=== PATIENT | female | born 1935 | race Hispanic/Latino ===

== ENCOUNTER → 2022-08-18 | Outpatient (CLI) | payer MEDICARE | END | disposition home or self-care (01) | LOC: RAD 14:47 | PROVIDERS: ATTEND Orthopaedic Surgery | DX: M17.11 Unilateral primary osteoarthritis, right knee (principal) | CPT/HCPCS: 73700 ==

== ENCOUNTER → 2022-09-02 | Outpatient (CLI) | payer MEDICARE ==
[2022-09-02 14:11] LABS: BASOPHIL % 0.4 % (0.0-0.2); EOSINOPHIL # 0.1 10^3/uL (0.0-0.2); EOSINOPHIL % 2.5 % (0.0-5.0); LYMPHOCYTES # 1.09 10^3/uL1 (1.0-4.8); LYMPHOCYTES % 19.4 % (24.0-44.0); MONOCYTES # 0.3 10^3/uL (0.3-0.8); MONOCYTES % 5.7 % (5.0-12.0); NEUTROPHILS % 71.8 % (41.0-85.0); PLATELET COUNT 184 10^3/uL (150-400); RED CELL DISTRIBUTION WIDTH 13.9 % (11.5-14.5)
[2022-09-02 14:47] LABS: CARBON DIOXIDE 27.8 mmol/L (20.0-32)
== END | disposition home or self-care (01) ==
LOC: NPLAB 13:03
PROVIDERS: ATTEND Specialist
DX: I10 Essential (primary) hypertension (principal); E11.9 Type 2 diabetes mellitus without complications; E78.00 Pure hypercholesterolemia, unspecified; E55.9 Vitamin D deficiency, unspecified
CPT/HCPCS: 36415; 80053; 80061; 82306; 83036; 84443; 85025; 86140

== ENCOUNTER 2022-09-20 08:00 | Inpatient (IN) | payer MEDICARE ==
[2022-09-16 14:38] VITALS: BP 126/62
--- NOTE | 2022-09-16 15:37 | PCM.EKG ---
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
[2022-09-16 15:47] LABS: BASOPHIL % 0.6 % (0.0-0.2); EOSINOPHIL # 0.1 10^3/uL (0.0-0.2); EOSINOPHIL % 2.8 % (0.0-5.0); LYMPHOCYTES # 1.07 10^3/uL1 (1.0-4.8); LYMPHOCYTES % 21.5 % (24.0-44.0); MEAN CORP HGB 28.9 pg (26-34); MONOCYTES # 0.3 10^3/uL (0.3-0.8); MONOCYTES % 6.2 % (5.0-12.0); NEUTROPHIL # 3.4 10^3/uL (1.8-7.7); NEUTROPHILS % 68.7 % (41.0-85.0); PLATELET COUNT 229 10^3/uL (150-400); RED CELL DISTRIBUTION WIDTH 13.3 % (11.5-14.5)
[2022-09-16 15:48] LABS: BILIRUBIN,URINE NEGATIVE (NEGATIVE); UROBILINOGEN,URINE 0.2 E.U./dL (0.2)
[2022-09-16 16:01] LABS: CARBON DIOXIDE 30.6 mmol/L (20.0-32)
[2022-09-20] VITALS (17 sets, daily range): BP systolic 100–154; BP diastolic 45–87
[~2022-09-20] VITALS: Ht 149.9 cm; Wt 86.6 kg
[2022-09-20] MEDS: LACTATED RINGERS 1,000 ML IV SCH ×2 (06:55→13:29)
[~2022-09-20 08:00] MED LIST: ANCEF 2 GM in NS 100ML 100 ML IV ONE; ANCEF ONE; ASPI81CA PO; BACTROBAN OINTMENT TP ONE; CELEBREX ONE; CELEBREX PO ONE; DECADRON IV ONE; DECADRON ONE; DIPRIVAN 100 ML IV ONE; EXPAREL 266 MG/20 ML VIAL IJ ONE; GABA100C7 PO; LISI10TA20 PO; MARCAINE 0.5% ONE; METF500T17 PO; NEURONTIN ONE; NEURONTIN PO ONE; NS 100ML 100 ML IV ONE; NS 250ML 250 ML ONE; NS 3000ML IRR IR ONE; OFIRMEV 100 ML IV ONE; OFIRMEV IV ONE; TRAM50TA PO; TRANEXAMIC 1,000 MG/100ML-NACL 200 ML IV ONE; ULTRAM ONE; ULTRAM PO ONE; VERSED ONE; WATER ONE; ZOFRAN ONE
--- NOTE | 2022-09-20 09:01 | PCM.HP ---
HISTORY & PHYSICAL HISTORY & PHYSICAL DATE OF ADMISSION: 09/20/22 CHIEF COMPLAINT: right knee pain HISTORY OF PRESENT ILLNESS: Patient has had right knee pain for several years. Her symptoms are gradually getting worse. She takes tramadol and tylenol for the pain. She has pain with household ambulation as well as night pain and limping. She is not able to do her activities of daily living. She states the right knee has given way several times causing her to fall. She's done a home exercise program and tried braces in the past. ALLERGIES: NKDA CURRENT MEDICATIONS: lisinopril, metformin, gabapentin, tramadol, vazalore PAST MEDICAL HISTORY: HTN, DM, dypsnea SOCIAL HISTORY: Lives at home by herself in [place]. She will be staying with her sisters in [place] while recovering from total knee replacement. She reports that she smoked for about a year 50 years ago. Denies alcohol use. Denies illicit drug use. FAMILY HISTORY: Diabetes, cardiac disease REVIEW OF SYSTEMS: right knee pain, all other systems unremarkable VITAL SIGNS: WNL PHYSICAL EXAMINATION: SKIN:WNL EENT:WNL AIRWAY:WNL CHEST AND LUNGS:CTA HEART:RRR ABDOMEN:soft and nontender, bowel sounds active x4 quadrants EXTREMITIES: Obvious varus deformity about the right knee. Right knee has full extension with 120 degrees of flexion. Moderate degree of crepitation with flexion and extension. Good medial lateral stability. LABORATORY DATA: IMAGING: Xrays show the right knee is tricompartmentally [id number] with some medial subluxation of her distal femur on the proximal tibia. SUMMARY: osteoarthritis of the right knee ASSESSMENT/PLAN: right total knee replacement Laboratory Tests Test 09/16/22 14:38 09/16/22 15:30 09/20/22 06:28 Urine Collection Type UNKNOWN Urine Color YELLOW Urine Appearance CLOUDY Urine Bilirubin NEGATIVE (NEGATIVE) Urine Ketones NEGATIVE (NEGATIVE) Urine Specific [place] >=1.030 (1.005-1.030) Urine pH 5.5 (4.5-8.0) Urine Protein NEGATIVE (NEGATIVE) Urine Urobilinogen 0.2 E.U./dL (0.2) Urine Nitrate POSITIVE (NEGATIVE) Urine Leukocyte Esterase NEGATIVE (NEGATIVE) Urine Glucose (Auto)(UA) NEGATIVE (NEGATIVE) Urine Blood NEGATIVE (NEGATIVE) Urine RBC NONE SEEN RBC/HPF (NONE Urine WBC 5-10 WBC/HPF (0-2) Urine Squamous Epithelial Cells MANY (<=FEW) Urine Bacteria MANY (NONE SEEN) White Blood Count 5.0 10^3/uL (4.5-11.0) Red Blood Count 4.50 10^6/uL (4.00-5.20) Hemoglobin 13.0 g/dL (12.0-15.0) Hematocrit 40.5 % (36.0-46.0) Mean Corpuscular Volume 90.0 fL (78-100) Mean Corpuscular Hemoglobin 28.9 pg (26-34) Mean Corpuscular Hemoglobin Concent 32.1 g/dL (33-36.5) Red Cell Distribution Width 13.3 % (11.5-14.5) Platelet Count 229 10^3/uL (150-400) Mean Platelet Volume 10.5 fL (7.8-11.0) Neutrophils (%) (Auto) 68.7 % (41.0-85.0) Lymphocytes (%) (Auto) 21.5 % (24.0-44.0) Monocytes (%) (Auto) 6.2 % (5.0-12.0) Neutrophils # (Auto) 3.4 10^3/uL (1.8-7.7) Lymphocytes # (Auto) 1.07 10^3/uL1 (1.0-4.8) Monocytes # (Auto) 0.3 10^3/uL (0.3-0.8) Absolute Immature Granulocyte (auto 0.01 10^3 u/L (0-2) Absolute Eosinophils (auto) 0.1 10^3/uL (0.0-0.2) Immature Granulocytes % 0.20 % (0.00-0.50) Eosinophils % 2.8 % (0.0-5.0) Basophils % 0.6 % (0.0-0.2) Basophils # 0.0 10^3/uL (0.0-0.1) Sodium Level 142 mmol/L (132-145) Potassium Level 4.3 mmol/L (3.6-5.2) Chloride Level 106.0 mmol/L (96-109) Carbon Dioxide Level 30.6 mmol/L (20.0-32) Anion Gap 9.7 Blood Urea Nitrogen 15 mg/dL (7-18) Creatinine 0.90 mg/dL (0.59-1.40) Estimated GFR () 71.7 (>/=60) Est GFR (CKD-EPI)(Non-Afr And[place]) 59.2 (>/=60) BUN/Creatinine Ratio 16.0 Glucose Level 112 mg/dL (70-110) Calcium Level 8.8 mg/dL (8.4-10.5) Total Bilirubin 0.4 mg/dL (0.2-1.0) Aspartate Amino Transf (AST/SGOT) 10 U/L (0-35) Alanine Aminotransferase (ALT/SGPT) 15 U/L (12-78) Alkaline Phosphatase 75 U/L (50-136) Total Protein 6.8 g/dL (6.4-8.2) Albumin 3.5 g/dL (3.4-5.0) Globulin 3.3 Albumin/Globulin Ratio 1.060 Bedside Glucose 101 (70 - 110) Microbiology Date/Time Source Procedure Growth Status 09/16/22 14:38 Nose MRSA Screen - Final Complete 09/16/22 14:38 Urine Unknown Urine Culture - Final Eschericha Coli Complete EVELIA JOHNSON SECURITY TRAINER Sep 20, 2022 09:01
[2022-09-20] MEDS ORDERED: CEPACOL SORE THROAT LOZENGE MM PRN (09:30)
[2022-09-20] MEDS ORDERED: LACTATED RINGERS 1,000 ML IV SCH (09:30)
[2022-09-20] MEDS ORDERED: ULTRAM PO PRN ×2 (09:30)
[2022-09-20] MEDS ORDERED: ZOFRAN IV PRN (09:30)
--- NOTE | 2022-09-20 11:03 | OPH ---
DATE OF SURGERY: 09/20/2022 DICTATOR NAME: Mika Tejada MD PREOPERATIVE DIAGNOSIS: Osteoarthritis of the right knee. POSTOPERATIVE DIAGNOSIS: Osteoarthritis of the right knee. OPERATIVE PROCEDURE: Right total knee arthroplasty using Medacta Sphere knee, a size 3 femur, a size 2 tibia, a 14 mm insert. All components were cemented. SURGEON: Mika Tejada MD. ANESTHESIA: Spinal. TOURNIQUET TIME: 62 minutes at 300 mmHg. DRAINS: None. BLOOD LOSS: 500 mL. DESCRIPTION OF INDICATIONS: The patient is an 87-year-old female with pain about the right knee for several years. Symptoms are worse in the last 6 months. She takes tramadol and Tylenol for the pain. She had several intraarticular cortisone injections with only temporary relief. She has pain with just household ambulation as well as night pain and limping. She is unable to perform her ADLs. The patient has failed a home exercise program. She has also tried a brace. Exam shows that the patient has an obvious varus deformity about the right knee. She has full extension and 120 degrees of flexion, good medial and lateral stability, moderate crepitation with flexion and extension. The x-rays showed that she has tricompartmentally [id number] of the right knee with a severe varus deformity. This patient's general health is good. She is still active, lives at home and admitted today for right total knee arthroplasty. DESCRIPTION OF PROCEDURE: The patient was given a spinal anesthetic by the anesthesia department and placed in the operating table in a supine position. A well-padded tourniquet was placed around the right thigh. The right lower extremity was sterilely prepped and draped. The leg was exsanguinated with an Esmarch and then the tourniquet was inflated to 300. The knee was flexed to 90 degrees and an anterior incision was made. The incision was taken through the skin and the subcutaneous tissues. Full-thickness flaps were developed medially and laterally. A medial parapatellar arthrotomy was performed. The patella was deviated laterally. The capsule and the MCL were released around the posteromedial corner of the proximal tibia. Medial and lateral meniscectomies were performed and the anterior and posterior cruciate ligaments were excised. The [employer] femoral cutting guide was placed about the distal femur and held into position with multiple pins. A distal femoral cut was then made with a power saw. The patient then had the #2 femoral guide, size 3, placed about the distal femur and held into position with multiple screws and pins. The anterior and posterior femoral cuts as well as the chamfer cuts were made. The patient had the bent knee retractor applied and the tibia was subluxed anteriorly. Medial and lateral meniscectomies were completed. The patient had the tibial cutting guide applied to the proximal tibia. The proximal tibia cut was made. The peripheral osteophytes were trimmed. The tibia was sized and a size 2 tibial trial had good coverage. The central drill hole was made and the cruciate punch was used to stabilize the tibial component. A trial reduction was done with a size 2 tibia, a size 3 femur, initially a 10 and we worked up to a size 14 insert. With the 14 insert, the patient had full extension with 120 degrees of flexion, excellent medial and lateral stability as well as excellent anterior and posterior stability at 90 degrees. The patient had the final medial and lateral femoral drill holes made. The patella had excellent tracking. The patella was everted and the peripheral osteophytes were trimmed, and the peripheral edges of the patella were cauterized. The patient then had the femoral sulcus cut made. All the trial components were removed from the knee. The bony ends were copiously irrigated and dried and then a size 2 tibial component was cemented into position. The excess cement was removed with curettes. A size 14 polyethylene component was applied and the size 3 femoral component was cemented. After all the excess cement was removed and the cement had hardened, the joint was irrigated with Betadine-containing solution for 3 minutes. At the end of the 3 minutes, the Betadine was irrigated from the wound. The tourniquet was released. The bleeding was controlled with the Aquamantys device. The capsule was then closed with a #2 PDS in an interrupted [id number] manner. The subcutaneous was closed with 2-0 barbed Monocryl in a running manner. The skin was closed with grant. A suction Prevena-type dressing was applied, reinforced with 4 x 4s, cast padding and Jose Alberto wrap. The patient was sent to recovery in a stable condition. Mika Tejada MD DR: TYRON/ASHU BACON: [id number] RECEIPT: [id number]
[2022-09-20] MEDS: TYLENOL PO SCH ×3 (12:48→23:25)
--- NOTE | 2022-09-20 13:07 | DIREP ---
PROCEDURE:XRAY KNEE 2 VWS-RT COMPARISON:None. INDICATIONS:right kinee pain FINDINGS: Arthroplasty of right knee in good alignment and without visualized complication. Expected subcutaneous emphysema and soft tissue swelling. No unexpected radiopaque foreign body. CONCLUSION: Arthroplasty of right knee in good alignment and without visualized complication. Dictated by: Dakota Savage DO on 09/20/2022 at 01:05 PM
[2022-09-20] MEDS: ANCEF 2 GM/D5W 50ML IV SCH ×2 (13:29→22:00)
[2022-09-20] MEDS: NEURONTIN PO SCH ×2 (15:48→21:00)
--- NOTE | 2022-09-20 16:04 | PRM.CONS ---
CONSULTATION CONSULTATION Referring physician: Dr. Tejada Reason for consultation: Medical management Chief complaint: right knee pain History present illness: Patient is 87 yo lady, PMH Diabetes,type II, HTN, osteoarthritis who has had right knee pain for several years, getting worse over past few months. She takes tramadol and tylenol for the pain. She has pain with ambulation and limping. She is not able to do her activities of daily living. She states the right knee has given way several times causing her to fall. She's done a home exercise program and tried braces in the past. She lives in [facility], currently staying with her sister in [place], had total right knee replacement by Dr Tejada earlier today. Currently pain controlled, patient still groggy from anesthesia during examination. Family present. Past medical history: Diabetes, type II, osteoporosis, hypertension Medications: Patient unable to recall any but metformin 500 mg daily Allergies: Patient denies any food or drug allergies PCP: Dr. Sanchez in [facility] Pharmacy: [facility] in [facility] or [facility] in [place] SURGICAL HISTORY: Cholecystectomy, tonsillectomy, hysterectomy, left breast lumpectomy Social history: Patient denies tobacco, alcohol, illicit drug use. Patient is , lives with her daughter, uses a cane Family history significant for diabetes and heart disease Review of systems: 10 point review systems negative per HPI Vital signs: Vital Signs Date Time Temp Pulse Resp B/P (MAP) Pulse Ox O2 Delivery O2 Flow Rate FiO2 09/20/22 12:11 98.6 56 16 125/70 (88) 99 Room Air* 0 21 09/20/22 10:58 97.8 52 16 109/55 (73) 93 Room Air 09/20/22 10:50 0 09/20/22 10:50 48 16 112/60 (77) 96 Room Air 09/20/22 10:45 50 16 109/64 (79) 100 Nasal Canula 09/20/22 10:40 49 16 113/65 (81) 98 Nasal Canula 09/20/22 10:35 52 16 112/60 (77) 98 Nasal Canula 09/20/22 10:30 52 16 124/56 (78) 98 Nasal Canula 09/20/22 10:25 56 16 107/45 (65) 99 Nasal [place]ula 09/20/22 10:21 2.00 2/27/23 10:21 97.7 55 16 103/56 (72) 99 Nasal [place]ula 09/20/22 07:35 62 16 132/74 (93) 100 Room Air 09/20/22 07:30 58 16 124/76 (92) 100 Nasal [place] 2.00 09/20/22 07:25 60 16 146/73 (97) 100 Nasal [place]ula 2.00 09/20/22 07:20 64 16 154/74 (100) 98 Nasal [place] 2.00 09/20/22 06:00 97.8 64 16 126/67 (86) 98 Room Air 09/20/22 06:00 Room Air Physical exam: General: Patient awakens easily, still groggy from surgery no acute distress HEENT: Head atraumatic, PERRL, EOMI, oropharynx clear, neck supple Heart: Normal S1 and S2, no murmur Lungs: Good air entry bilaterally, no rhonchi or wheeze Abdomen: Soft, nontender, positive bowel sounds but diminished Extremities: Right leg bandaged, regional block in place, good distal pulses bilaterally Skin: Intact, no rashes or breakdown Neuro: Patient groggy but alert and oriented x4, grossly intact Laboratory: Laboratory Tests 09/20/22 06:28: Bedside Glucose 101 Summary: 87-year-old lady with past medical history of hypertension, diabetes type 2, osteoarthritis presented with complaint of progressing right knee pain post right total knee replacement today. Assessment/plan: Hypertensionblood pressure: Controlled, continue home medications once known Diabetes, type IIcontinue Accu-Cheks, will resume home medications once known. Sliding-scale insulin as needed Right knee painpost total knee replacement today, Dr. Tejada, pain currently controlled, further plan per Dr. Tejada/PT Scheduled Aspirin (Vazalore), 81 MG PO DAILY24, (Reported) Gabapentin (Gabapentin), 1 CAP PO TID, (Reported) Lisinopril (Lisinopril), 1 TAB PO DAILY, (Reported) Metformin Hcl (Metformin Hcl), 1 TAB PO BID, (Reported) Tramadol Hcl (Tramadol Hcl), 0.5 TAB PO TID, (Reported) VITALS REVIEW VITALS Vital Sign - Last 24 Hours 09/20/22 09/20/22 09/20/22 09/20/22 06:00 06:00 07:20 07:25 Temp 97.8 Pulse 64 64 60 Resp 16 16 16 B/P (MAP) 126/67 (86) 154/74 (100) 146/73 (97) Pulse Ox 98 98 100 O2 Delivery Room Air Room Air Nasal Canula Nasal Canula O2 Flow Rate 2.00 2.00 09/20/22 09/20/22 09/20/22 09/20/22 07:30 07:35 10:21 10:21 Temp 97.7 Pulse 58 62 55 Resp 16 16 16 B/P (MAP) 124/76 (92) 132/74 (93) 103/56 (72) Pulse Ox 100 100 99 O2 Delivery Nasal Canula Room Air Nasal [place]ula O2 Flow Rate 2.00 2.00 09/20/22 09/20/22 09/20/22 09/20/22 10:25 10:30 10:35 10:40 Pulse 56 52 52 49 Resp 16 16 16 16 B/P (MAP) 107/45 (65) 124/56 (78) 112/60 (77) 113/65 (81) Pulse Ox 99 98 98 98 O2 Delivery Nasal Canula Nasal Canula Nasal Canula Nasal Canula 09/20/22 09/20/22 09/20/22 09/20/22 10:45 10:50 10:50 10:58 Temp 97.8 Pulse 50 48 52 Resp 16 16 16 B/P (MAP) 109/64 (79) 112/60 (77) 109/55 (73) Pulse Ox 100 96 93 O2 Delivery Nasal [place] Room Air Room Air O2 Flow Rate 0 09/20/22 12:11 Temp 98.6 Pulse 56 Resp 16 B/P (MAP) 125/70 (88) Pulse Ox 99 O2 Delivery Room Air* O2 Flow Rate 0 FiO2 21 LABS LAB RESULTS Laboratory Tests Test 09/20/22 06:28 Bedside Glucose 101 (70 - 110) YASH REYES MD Sep 20, 2022 16:04
--- NOTE | 2022-09-20 17:12 | PRM.PN ---
Subjective Subjective Date: Sep 20, 2022 Time: 17:11 Subjective Awake and alert Pain ok Up in room with PT HGB pending NVM+ Stable Patient History: Diabetes mellitus 19 CHILD 19 CHILD No known health problems G8 BROTHER G8 BROTHER G8 BROTHER G8 SISTER G8 SISTER G8 SISTER G8 SISTER G8 SISTER 19 CHILD VTE VTE Risk Total Score: 3 VTE Risk Score VTE Risk: Score 0-1 = Low Risk (Aggressive mobilization; early ambulation; no VTE prophylaxis required) Score 2: Moderate Risk (Intermittent/Pneumatic Compression Device OR Lovenox/Heparin/Coumadin) Score 3-4: High Risk (Intermittent/Pneumatic Compression Device AND Lovenox/Heparin/Coumadin) Score > or =5: Highest Risk (Intermittent/Pneumatic Compression Device AND Lovenox/Heparin/Coumadin) Review of Systems Allergies: Coded Allergies: No Known Allergies (Unverified , 09/16/22) Scheduled Aspirin (Vazalore), 81 MG PO DAILY24, (Reported) Gabapentin (Gabapentin), 1 CAP PO TID, (Reported) Lisinopril (Lisinopril), 1 TAB PO DAILY, (Reported) Metformin Hcl (Metformin Hcl), 1 TAB PO BID, (Reported) Tramadol Hcl (Tramadol Hcl), 0.5 TAB PO TID, (Reported) Objective Vitals and I/O Vital Sign - Last 24 Hours 09/20/22 09/20/22 09/20/22 09/20/22 06:00 06:00 07:20 07:25 Temp 97.8 Pulse 64 64 60 Resp 16 16 16 B/P (MAP) 126/67 (86) 154/74 (100) 146/73 (97) Pulse Ox 98 98 100 O2 Delivery Room Air Room Air Nasal [place]ula Nasal Canula O2 Flow Rate 2.00 2.00 09/20/22 09/20/22 09/20/22 09/20/22 07:30 07:35 10:21 10:21 Temp 97.7 Pulse 58 62 55 Resp 16 16 16 B/P (MAP) 124/76 (92) 132/74 (93) 103/56 (72) Pulse Ox 100 100 99 O2 Delivery Nasal Canula Room Air Nasal [place]ula O2 Flow Rate 2.00 2.00 09/20/22 09/20/22 09/20/22 09/20/22 10:25 10:30 10:35 10:40 Pulse 56 52 52 49 Resp 16 16 16 16 B/P (MAP) 107/45 (65) 124/56 (78) 112/60 (77) 113/65 (81) Pulse Ox 99 98 98 98 O2 Delivery Nasal Canula Nasal Canula Nasal Canula Nasal Canula 09/20/22 09/20/22 09/20/22 09/20/22 10:45 10:50 10:50 10:58 Temp 97.8 Pulse 50 48 52 Resp 16 16 16 B/P (MAP) 109/64 (79) 112/60 (77) 109/55 (73) Pulse Ox 100 96 93 O2 Delivery Nasal [place] Room Air Room Air O2 Flow Rate 0 09/20/22 09/20/22 12:11 16:02 Temp 98.6 98.8 Pulse 56 58 Resp 16 19 B/P (MAP) 125/70 (88) 150/87 (108) Pulse Ox 99 97 O2 Delivery Room Air* Room Air* O2 Flow Rate 0 0 FiO2 21 21 All Results(Lab/Rad) Laboratory Tests Test 09/20/22 06:28 Bedside Glucose 101 Current Medications Medications (Trade) Dose Ordered Sig/Norris Route PRN Reason Start Time Stop Time Status Last Admin Dose Admin Cefazolin Sodium 2 gm/Sodium Chloride 100 ml @ 100 mls/hr OT ONCE IV 09/20/22 06:00 09/20/22 13:09 DC 09/20/22 08:06 Mupirocin (Bactroban Ointment) 1 gm OT ONCE TP 09/20/22 06:00 09/20/22 13:09 DC 09/20/22 06:38 Cefazolin Sodium (Ancef) 2 gm STK-MED ONCE .ROUTE 09/20/22 05:35 09/20/22 05:35 DC Sodium Chloride 100 ml @ ud STK-MED ONCE IV 09/20/22 05:35 09/20/22 05:36 DC Gabapentin (Neurontin) 300 mg STK-MED ONCE .ROUTE 09/20/22 05:54 09/20/22 05:54 DC Celecoxib (Celebrex) 100 mg STK-MED ONCE .ROUTE 09/20/22 05:54 09/20/22 05:54 DC Tramadol HCl (Ultram) 50 mg STK-MED ONCE .ROUTE 09/20/22 05:54 09/20/22 05:54 DC Acetaminophen 100 ml @ ud STK-MED ONCE IV 09/20/22 05:54 09/20/22 05:54 DC Celecoxib (Celebrex) 400 mg OT ONCE PO 09/20/22 06:00 09/20/22 13:11 DC 09/20/22 06:36 Gabapentin (Neurontin) 600 mg OT ONCE PO 09/20/22 06:00 09/20/22 13:13 DC 09/20/22 06:38 Tramadol HCl (Ultram) 100 mg OT ONCE PO 09/20/22 06:00 09/20/22 13:15 DC 09/20/22 06:37 Acetaminophen (Ofirmev) 500 mg OT ONCE IV 09/20/22 06:00 09/20/22 13:15 DC 09/20/22 06:58 Sodium Chloride (NS 3000ml Irr) 3,000 ml STK-MED ONCE IR 09/20/22 07:12 09/20/22 07:13 DC Sterile Water (Water) 1,000 ml STK-MED ONCE .ROUTE 09/20/22 07:12 09/20/22 07:13 DC Sodium Chloride 250 ml @ ud STK-MED ONCE .ROUTE 09/20/22 07:13 09/20/22 07:14 DC Bupivacaine HCl (Marcaine 0.5%) 1 ml STK-MED ONCE .ROUTE 09/20/22 07:15 09/20/22 07:15 DC Sterile Water (Water) 1,000 ml STK-MED ONCE .ROUTE 09/20/22 07:17 09/20/22 07:17 DC Sterile Water (Water) 1,000 ml STK-MED ONCE .ROUTE 09/20/22 07:19 09/20/22 07:19 DC Ondansetron HCl (Zofran) 4 mg STK-MED ONCE .ROUTE 09/20/22 07:42 09/20/22 07:42 DC Propofol 100 ml @ ud STK-MED ONCE IV 09/20/22 07:42 09/20/22 07:42 DC Gabapentin (Neurontin) 100 mg TID PO 09/20/22 15:00 10/20/22 14:59 09/20/22 15:48 Lisinopril (Zestril) 10 mg DAILY PO 09/21/22 09:00 10/21/22 08:59 Metformin HCl (Glucophage) 500 mg BID PO 09/20/22 21:00 10/20/22 20:59 Tramadol HCl (Ultram) 50 mg Q6H PRN PO PAIN 1 - 3 09/20/22 09:30 10/20/22 09:29 Tramadol HCl (Ultram) 100 mg Q6H PRN PO PAIN 4 - 6 09/20/22 09:30 10/20/22 09:29 Rivaroxaban (Xarelto) 10 mg DAILY PO 09/21/22 09:00 10/21/22 08:59 Docusate Sodium (Colace) 100 mg DAILY PO 09/21/22 09:00 10/21/22 08:59 Throat Lozenges (Cepacol Sore Throat Lozenge) 1 each PRN PRN MM SORE THROAT 09/20/22 09:30 10/20/22 09:29 Cefazolin Sodium/ Dextrose (Ancef 2 Gm/D5W 50ml) 2 gm Q8 IV 09/20/22 14:00 09/21/22 06:01 09/20/22 13:29 Famotidine (Pepcid) 20 mg DAILY PO 09/21/22 09:00 10/21/22 08:59 Acetaminophen (Tylenol) 1,000 mg Q6HR PO 09/20/22 12:00 10/20/22 11:59 09/20/22 12:48 Mupirocin (Bactroban Ointment) 1 gm BID TP 09/20/22 21:00 10/20/22 20:59 Ondansetron HCl (Zofran) 4 mg Q4H PRN IV NAUSEA / VOMITING 09/20/22 09:30 10/20/22 09:29 Ketorolac Tromethamine (Toradol) 15 mg Q6H PRN IV PAIN 7 - 10 09/20/22 09:30 09/25/22 09:29 Course Vitals & review Data Vital Sign - Last 24 Hours 09/20/22 09/20/22 09/20/22 09/20/22 06:00 06:00 07:20 07:25 Temp 97.8 Pulse 64 64 60 Resp 16 16 16 B/P (MAP) 126/67 (86) 154/74 (100) 146/73 (97) Pulse Ox 98 98 100 O2 Delivery Room Air Room Air Nasal Canula Nasal Canula O2 Flow Rate 2.00 2.00 09/20/22 09/20/22 09/20/22 09/20/22 07:30 07:35 10:21 10:21 Temp 97.7 Pulse 58 62 55 Resp 16 16 16 B/P (MAP) 124/76 (92) 132/74 (93) 103/56 (72) Pulse Ox 100 100 99 O2 Delivery Nasal Canula Room Air Nasal Canula O2 Flow Rate 2.00 2.00 09/20/22 09/20/22 09/20/22 09/20/22 10:25 10:30 10:35 10:40 Pulse 56 52 52 49 Resp 16 16 16 16 B/P (MAP) 107/45 (65) 124/56 (78) 112/60 (77) 113/65 (81) Pulse Ox 99 98 98 98 O2 Delivery Nasal Canula Nasal Canula Nasal Canula Nasal Canula 09/20/22 09/20/22 09/20/22 09/20/22 10:45 10:50 10:50 10:58 Temp 97.8 Pulse 50 48 52 Resp 16 16 16 B/P (MAP) 109/64 (79) 112/60 (77) 109/55 (73) Pulse Ox 100 96 93 O2 Delivery Nasal [place]ula Room Air Room Air O2 Flow Rate 0 09/20/22 09/20/22 12:11 16:02 Temp 98.6 98.8 Pulse 56 58 Resp 16 19 B/P (MAP) 125/70 (88) 150/87 (108) Pulse Ox 99 97 O2 Delivery Room Air* Room Air* O2 Flow Rate 0 0 FiO2 21 21 Laboratory Tests Test 09/20/22 06:28 Bedside Glucose 101 Current Medications Medications (Trade) Dose Ordered Sig/Norris PRN Reason Start Time Stop Time Status Last Admin Acetaminophen (Tylenol) 1,000 mg Q6HR 09/20/22 12:00 10/20/22 11:59 09/20/22 12:48 Cefazolin Sodium/ Dextrose (Ancef 2 Gm/D5W 50ml) 2 gm Q8 09/20/22 14:00 09/21/22 06:01 09/20/22 13:29 Docusate Sodium (Colace) 100 mg DAILY 09/21/22 09:00 10/21/22 08:59 Famotidine (Pepcid) 20 mg DAILY 09/21/22 09:00 10/21/22 08:59 Gabapentin (Neurontin) 100 mg TID 09/20/22 15:00 10/20/22 14:59 09/20/22 15:48 Ketorolac Tromethamine (Toradol) 15 mg Q6H PRN PAIN 7 - 10 09/20/22 09:30 09/25/22 09:29 Lisinopril (Zestril) 10 mg DAILY 09/21/22 09:00 10/21/22 08:59 Metformin HCl (Glucophage) 500 mg BID 09/20/22 21:00 10/20/22 20:59 Mupirocin (Bactroban Ointment) 1 gm BID 09/20/22 21:00 10/20/22 20:59 Ondansetron HCl (Zofran) 4 mg Q4H PRN NAUSEA / VOMITING 09/20/22 09:30 10/20/22 09:29 Rivaroxaban (Xarelto) 10 mg DAILY 09/21/22 09:00 10/21/22 08:59 Throat Lozenges (Cepacol Sore Throat Lozenge) 1 each PRN PRN SORE THROAT 09/20/22 09:30 10/20/22 09:29 Tramadol HCl (Ultram) 50 mg Q6H PRN PAIN 1 - 3 09/20/22 09:30 10/20/22 09:29 Tramadol HCl (Ultram) 100 mg Q6H PRN PAIN 4 - 6 09/20/22 09:30 10/20/22 09:29 O2 Sat by Pulse Oximetry: 97 Respiratory End-tidal CO2: 0 Oxygen Flow Rate: 0 HAFSA MESSER MD Sep 20, 2022 17:12
[2022-09-20 18:06] LABS: MEAN CORP HGB 28.7 pg (26-34); RED CELL DISTRIBUTION WIDTH 13.1 % (11.5-14.5)
[2022-09-20] MEDS: GLUCOPHAGE PO SCH (21:00)
[2022-09-20] MEDS: BACTROBAN OINTMENT TP SCH (21:00)
[2022-09-21] MEDS: TORADOL IV PRN ×3 (02:30→19:29)
[2022-09-21 03:49] VITALS: BP 104/52
[2022-09-21] MEDS: TYLENOL PO SCH ×4 (05:10→23:51)
[2022-09-21] MEDS: ANCEF 2 GM/D5W 50ML IV SCH (05:11)
[2022-09-21 06:36] LABS: MEAN CORP HGB 29.2 pg (26-34); RED CELL DISTRIBUTION WIDTH 13.2 % (11.5-14.5)
[2022-09-21 08:08] VITALS: BP 140/80
--- NOTE | 2022-09-21 09:04 | PRM.PN ---
Subjective Subjective Date: Sep 21, 2022 Time: 09:03 Subjective Up in chair with PT Pain ok VSS NVM+HGB 10.5 postop anemia from acute surgical blood loss expected DC bunn Cont with PT Patient History: Diabetes mellitus 19 CHILD 19 CHILD No known health problems G8 BROTHER G8 BROTHER G8 BROTHER G8 SISTER G8 SISTER G8 SISTER G8 SISTER G8 SISTER 19 CHILD VTE VTE Risk Total Score: >5 VTE Risk Score VTE Risk: Score 0-1 = Low Risk (Aggressive mobilization; early ambulation; no VTE prophylaxis required) Score 2: Moderate Risk (Intermittent/Pneumatic Compression Device OR Lovenox/Heparin/Coumadin) Score 3-4: High Risk (Intermittent/Pneumatic Compression Device AND Lovenox/Heparin/Coumadin) Score > or =5: Highest Risk (Intermittent/Pneumatic Compression Device AND Lovenox/Heparin/Coumadin) Review of Systems Allergies: Coded Allergies: No Known Allergies (Unverified , 09/16/22) Scheduled Aspirin (Vazalore), 81 MG PO DAILY24, (Reported) Gabapentin (Gabapentin), 1 CAP PO TID, (Reported) Lisinopril (Lisinopril), 1 TAB PO DAILY, (Reported) Metformin Hcl (Metformin Hcl), 1 TAB PO BID, (Reported) Tramadol Hcl (Tramadol Hcl), 0.5 TAB PO TID, (Reported) Objective Vitals and I/O Vital Sign - Last 24 Hours 09/20/22 09/20/22 09/20/22 09/20/22 10:21 10:21 10:25 10:30 Temp 97.7 Pulse 55 56 52 Resp 16 16 16 B/P (MAP) 103/56 (72) 107/45 (65) 124/56 (78) Pulse Ox 99 99 98 O2 Delivery Nasal Canula Nasal Canula Nasal Canula O2 Flow Rate 2.00 09/20/22 09/20/22 09/20/22 09/20/22 10:35 10:40 10:45 10:50 Pulse 52 49 50 48 Resp 16 16 16 16 B/P (MAP) 112/60 (77) 113/65 (81) 109/64 (79) 112/60 (77) Pulse Ox 98 98 100 96 O2 Delivery Nasal Canula Nasal Canula Nasal Canula Room Air 2/09/20/22 09/20/22 09/20/22 10:50 10:58 11:00 11:00 Temp 97.8 Pulse 52 Resp 16 B/P (MAP) 109/55 (73) Pulse Ox 93 O2 Delivery Room Air Room Air Room Air O2 Flow Rate 0 0.00 0.00 09/20/22 09/20/22 09/20/22 09/20/22 12:11 16:02 19:43 19:44 Temp 98.6 98.8 Pulse 56 58 Resp 16 19 B/P (MAP) 125/70 (88) 150/87 (108) Pulse Ox 99 97 O2 Delivery Room Air* Room Air* Room Air Room Air O2 Flow Rate 0 0 0.00 0.00 FiO2 21 21 09/20/22 09/20/22 09/21/22 09/21/22 19:45 23:35 03:49 07:58 Temp 97.3 97.2 96.5 Pulse 60 66 61 Resp 17 18 18 B/P (MAP) 141/77 (98) 100/57 (71) 104/52 (69) Pulse Ox 97 92 93 O2 Delivery Room Air* Room Air* Room Air* Room Air O2 Flow Rate 0 0 0 0.00 FiO2 21 21 21 09/21/22 09/21/22 08:08 08:13 Temp 98.0 Pulse 54 Resp 18 B/P (MAP) 140/80 (100) Pulse Ox 97 O2 Delivery Room Air* Room Air O2 Flow Rate 0 0.00 FiO2 21 Intake and Output 09/21/22 07:00 Intake Total 6950 ml Output Total 1300 ml Balance 5650 ml All Results(Lab/Rad) Laboratory Tests Test 09/20/22 06:28 Bedside Glucose 101 Current Medications Medications (Trade) Dose Ordered Sig/Norris Route PRN Reason Start Time Stop Time Status Last Admin Dose Admin Cefazolin Sodium 2 gm/Sodium Chloride 100 ml @ 100 mls/hr OT ONCE IV 09/20/22 06:00 09/20/22 13:09 DC 09/20/22 08:06 Mupirocin (Bactroban Ointment) 1 gm OT ONCE TP 09/20/22 06:00 09/20/22 13:09 DC 09/20/22 06:38 Cefazolin Sodium (Ancef) 2 gm STK-MED ONCE .ROUTE 09/20/22 05:35 2/27/23 05:35 DC Sodium Chloride 100 ml @ ud STK-MED ONCE IV 09/20/22 05:35 09/20/22 05:36 DC Gabapentin (Neurontin) 300 mg STK-MED ONCE .ROUTE 09/20/22 05:54 09/20/22 05:54 DC Celecoxib (Celebrex) 100 mg STK-MED ONCE .ROUTE 09/20/22 05:54 09/20/22 05:54 DC Tramadol HCl (Ultram) 50 mg STK-MED ONCE .ROUTE 09/20/22 05:54 09/20/22 05:54 DC Acetaminophen 100 ml @ ud STK-MED ONCE IV 09/20/22 05:54 09/20/22 05:54 DC Celecoxib (Celebrex) 400 mg OT ONCE PO 09/20/22 06:00 09/20/22 13:11 DC 09/20/22 06:36 Gabapentin (Neurontin) 600 mg OT ONCE PO 09/20/22 06:00 09/20/22 13:13 DC 09/20/22 06:38 Tramadol HCl (Ultram) 100 mg OT ONCE PO 09/20/22 06:00 09/20/22 13:15 DC 09/20/22 06:37 Acetaminophen (Ofirmev) 500 mg OT ONCE IV 09/20/22 06:00 09/20/22 13:15 DC 09/20/22 06:58 Sodium Chloride (NS 3000ml Irr) 3,000 ml STK-MED ONCE IR 09/20/22 07:12 09/20/22 07:13 DC Sterile Water (Water) 1,000 ml STK-MED ONCE .ROUTE 09/20/22 07:12 09/20/22 07:13 DC Sodium Chloride 250 ml @ ud STK-MED ONCE .ROUTE 09/20/22 07:13 09/20/22 07:14 DC Bupivacaine HCl (Marcaine 0.5%) 1 ml STK-MED ONCE .ROUTE 09/20/22 07:15 09/20/22 07:15 DC Sterile Water (Water) 1,000 ml STK-MED ONCE .ROUTE 09/20/22 07:17 09/20/22 07:17 DC Sterile Water (Water) 1,000 ml STK-MED ONCE .ROUTE 09/20/22 07:19 09/20/22 07:19 DC Ondansetron HCl (Zofran) 4 mg STK-MED ONCE .ROUTE 09/20/22 07:42 09/20/22 07:42 DC Propofol 100 ml @ ud STK-MED ONCE IV 09/20/22 07:42 09/20/22 07:42 DC Gabapentin (Neurontin) 100 mg TID PO 09/20/22 15:00 10/20/22 14:59 09/20/22 15:48 Lisinopril (Zestril) 10 mg DAILY PO 09/21/22 09:00 10/21/22 08:59 Metformin HCl (Glucophage) 500 mg BID PO 09/20/22 21:00 10/20/22 20:59 Tramadol HCl (Ultram) 50 mg Q6H PRN PO PAIN 1 - 3 09/20/22 09:30 10/20/22 09:29 Tramadol HCl (Ultram) 100 mg Q6H PRN PO PAIN 4 - 6 09/20/22 09:30 10/20/22 09:29 Rivaroxaban (Xarelto) 10 mg DAILY PO 09/21/22 09:00 10/21/22 08:59 Docusate Sodium (Colace) 100 mg DAILY PO 09/21/22 09:00 10/21/22 08:59 Throat Lozenges (Cepacol Sore Throat Lozenge) 1 each PRN PRN MM SORE THROAT 09/20/22 09:30 10/20/22 09:29 Cefazolin Sodium/ Dextrose (Ancef 2 Gm/D5W 50ml) 2 gm Q8 IV 09/20/22 14:00 09/21/22 06:01 09/20/22 13:29 Famotidine (Pepcid) 20 mg DAILY PO 09/21/22 09:00 10/21/22 08:59 Acetaminophen (Tylenol) 1,000 mg Q6HR PO 09/20/22 12:00 10/20/22 11:59 09/20/22 12:48 Mupirocin (Bactroban Ointment) 1 gm BID TP 09/20/22 21:00 10/20/22 20:59 Ondansetron HCl (Zofran) 4 mg Q4H PRN IV NAUSEA / VOMITING 09/20/22 09:30 10/20/22 09:29 Ketorolac Tromethamine (Toradol) 15 mg Q6H PRN IV PAIN 7 - 10 09/20/22 09:30 09/25/22 09:29 Course Sepsis Screening Results: Posi: NEGATIVE Sepsis Qualifier/Stage: NO DEFINITE RISK Vitals & review Data Vital Sign - Last 24 Hours 09/20/22 09/20/22 09/20/22 09/20/22 06:00 06:00 07:20 07:25 Temp 97.8 Pulse 64 64 60 Resp 16 16 16 B/P (MAP) 126/67 (86) 154/74 (100) 146/73 (97) Pulse Ox 98 98 100 O2 Delivery Room Air Room Air Nasal Canula Nasal Canula O2 Flow Rate 2.00 2.00 09/20/22 09/20/22 09/20/22 09/20/22 07:30 07:35 10:21 10:21 Temp 97.7 Pulse 58 62 55 Resp 16 16 16 B/P (MAP) 124/76 (92) 132/74 (93) 103/56 (72) Pulse Ox 100 100 99 O2 Delivery Nasal Canula Room Air Nasal Canula O2 Flow Rate 2.00 2.00 09/20/22 09/20/22 09/20/22 09/20/22 10:25 10:30 10:35 10:40 Pulse 56 52 52 49 Resp 16 16 16 16 B/P (MAP) 107/45 (65) 124/56 (78) 112/60 (77) 113/65 (81) Pulse Ox 99 98 98 98 O2 Delivery Nasal Canula Nasal Canula Nasal Canula Nasal Canula 09/20/22 09/20/22 09/20/22 09/20/22 10:45 10:50 10:50 10:58 Temp 97.8 Pulse 50 48 52 Resp 16 16 16 B/P (MAP) 109/64 (79) 112/60 (77) 109/55 (73) Pulse Ox 100 96 93 O2 Delivery Nasal Canula Room Air Room Air O2 Flow Rate 0 09/20/22 09/20/22 12:11 16:02 Temp 98.6 98.8 Pulse 56 58 Resp 16 19 B/P (MAP) 125/70 (88) 150/87 (108) Pulse Ox 99 97 O2 Delivery Room Air* Room Air* O2 Flow Rate 0 0 FiO2 21 21 Laboratory Tests Test 09/20/22 06:28 Bedside Glucose 101 Current Medications Medications (Trade) Dose Ordered Sig/Norris PRN Reason Start Time Stop Time Status Last Admin Acetaminophen (Tylenol) 1,000 mg Q6HR 09/20/22 12:00 10/20/22 11:59 09/20/22 12:48 Cefazolin Sodium/ Dextrose (Ancef 2 Gm/D5W 50ml) 2 gm Q8 09/20/22 14:00 09/21/22 06:01 09/20/22 13:29 Docusate Sodium (Colace) 100 mg DAILY 09/21/22 09:00 10/21/22 08:59 Famotidine (Pepcid) 20 mg DAILY 09/21/22 09:00 10/21/22 08:59 Gabapentin (Neurontin) 100 mg TID 09/20/22 15:00 10/20/22 14:59 09/20/22 15:48 Ketorolac Tromethamine (Toradol) 15 mg Q6H PRN PAIN 7 - 10 09/20/22 09:30 09/25/22 09:29 Lisinopril (Zestril) 10 mg DAILY 09/21/22 09:00 10/21/22 08:59 Metformin HCl (Glucophage) 500 mg BID 09/20/22 21:00 10/20/22 20:59 Mupirocin (Bactroban Ointment) 1 gm BID 09/20/22 21:00 10/20/22 20:59 Ondansetron HCl (Zofran) 4 mg Q4H PRN NAUSEA / VOMITING 09/20/22 09:30 10/20/22 09:29 Rivaroxaban (Xarelto) 10 mg DAILY 09/21/22 09:00 10/21/22 08:59 Throat Lozenges (Cepacol Sore Throat Lozenge) 1 each PRN PRN SORE THROAT 09/20/22 09:30 10/20/22 09:29 Tramadol HCl (Ultram) 50 mg Q6H PRN PAIN 1 - 3 09/20/22 09:30 10/20/22 09:29 Tramadol HCl (Ultram) 100 mg Q6H PRN PAIN 4 - 6 09/20/22 09:30 10/20/22 09:29 LEVEL 1 SEPSIS INFECTION CRITE: ABX Therapy, Recent Invasive Procedure LEVEL 2-SIRS (LIST ALL THAT AP: None/Not assessed Cardiovascular Evidence: Not Assessed or None Hematologic Evidence: None/Not assessed Hepatic Evidence: None/Not assessed Respiratory Evidence: None/Not assessed Renal Evidence: None/Not assessed O2 Sat by Pulse Oximetry: 97 Respiratory End-tidal CO2: 0 Oxygen Flow Rate: 0.00 HAFSA MESSER MD Sep 21, 2022 09:04
[2022-09-21] MEDS: NEURONTIN PO SCH ×3 (09:22→20:12)
[2022-09-21] MEDS: BACTROBAN OINTMENT TP SCH ×2 (09:23→20:12)
[2022-09-21] MEDS: XARELTO PO SCH (09:23)
[2022-09-21] MEDS: GLUCOPHAGE PO SCH ×3 (09:23→20:21)
[2022-09-21] MEDS: PEPCID PO SCH (09:23)
[2022-09-21] MEDS: COLACE PO SCH (09:23)
[2022-09-21] MEDS: ZESTRIL PO SCH (09:24)
--- NOTE | 2022-09-21 10:45 | NUR ---
toradol 15mg iv given for pain 8/10 per prn order
--- NOTE | 2022-09-21 11:20 | NUR ---
[facility] CATHETER DISCONTINUED PER ORDER, 9CC OF WATER REMOVED FROM BULB, REMOVED WITHOUT DIFFICULTY. PT D/T VOID BY 1919
[2022-09-21 12:36] VITALS: BP 110/46
--- NOTE | 2022-09-21 12:55 | NUR ---
pt has voided after cath removal
--- NOTE | 2022-09-21 13:29 | PRM.PN ---
PROGRESS NOTE SUBJECTIVE CONSULT PROGRESS NOTE: Patient reports doing well, ambulated with physical therapy, pain controlled. No acute events OBJECTIVE Vital Signs Date Time Temp Pulse Resp B/P (MAP) Pulse Ox O2 Delivery O2 Flow Rate FiO2 09/21/22 12:36 98.6 61 19 110/46 (67) 96 Room Air* 0 21 09/21/22 09:24 140/80 09/21/22 08:13 Room Air 0.00 09/21/22 08:08 98.0 54 18 140/80 (100) 97 Room Air* 0 09/21/22 07:58 Room Air 0.00 Physical exam: General: awake and alert, sitting up in chair Heart: Normal S1 and S2, no murmur Lungs: Good air entry bilaterally, no rhonchi or wheeze Abdomen: Soft, nontender, positive bowel sounds but diminished Extremities:incision clean and intact. Laboratory Tests 09/20/22 17:48: White Blood Count 10.0, Red Blood Count 4.25, Hemoglobin 12.2, Hematocrit 38.1, Mean Corpuscular Volume 89.6, Mean Corpuscular Hemoglobin 28.7, Mean Corpuscular Hemoglobin Concent 32.0L, Red Cell Distribution Width 13.1, Platelet Count 199, Mean Platelet Volume 10.5 09/20/22 20:53: Bedside Glucose 259H 09/21/22 06:21: White Blood Count 8.5, Red Blood Count 3.53L, Hemoglobin 10.3L, Hematocrit 31.2L , Mean Corpuscular Volume 88.4, Mean Corpuscular Hemoglobin 29.2, Mean Corpuscular Hemoglobin Concent 33.0, Red Cell Distribution Width 13.2, Platelet Count 182, Mean Platelet Volume 10.1 09/21/22 07:32: Bedside Glucose 104 09/21/22 11:16: Bedside Glucose 103 ASSESSMENT Hypertension Diabetes, type II Right knee pain PLAN Hypertensionblood pressure: Controlled, continue current medications Diabetes, type II blood sugars controlled, continue current medications, SSI prn Right knee painpost total knee replacement POD 2, Dr. Tejada, pain currently controlled, further plan per Dr. Tejada/PT YASH REYES MD Sep 21, 2022 13:29
[2022-09-21] MEDS ORDERED: MILK OF MAGNESIA PO ONE (17:00)
[2022-09-21 17:29] VITALS: BP 142/73
[2022-09-21 19:57] VITALS: BP 128/60
[2022-09-21 23:45] VITALS: BP 117/50
[2022-09-22] MEDS: TYLENOL PO SCH ×2 (05:06→12:05)
[2022-09-22 06:17] LABS: MEAN CORP HGB 28.7 pg (26-34); RED CELL DISTRIBUTION WIDTH 13.5 % (11.5-14.5)
[2022-09-22 06:47] VITALS: BP 122/67
--- NOTE | 2022-09-22 09:08 | PRM.PN ---
Subjective Subjective Date: Sep 22, 2022 Time: 08:25 Subjective Patient awake and alert, sitting up in bed. Pain okay Hgb 9.9. postop anemia from acute surgical blood loss expected VSS NVM+ Patient states that she does not feel ready to be discharged home today. She would like to have another day in the hospital to recover before being discharged home. Continue with PT Patient History: Diabetes mellitus 19 CHILD 19 CHILD No known health problems G8 BROTHER G8 BROTHER G8 BROTHER G8 SISTER G8 SISTER G8 SISTER G8 SISTER G8 SISTER 19 CHILD Events Since Last Encounter 1000: After discussing with family patient has decided that she would like to be discharged home today. Discharge instructions given to patient. All questions regarding discharge and follow up answered. Will write discharge orders. VTE VTE Risk Total Score: >5 VTE Risk Score VTE Risk: Score 0-1 = Low Risk (Aggressive mobilization; early ambulation; no VTE prophylaxis required) Score 2: Moderate Risk (Intermittent/Pneumatic Compression Device OR Lovenox/Heparin/Coumadin) Score 3-4: High Risk (Intermittent/Pneumatic Compression Device AND Lovenox/Heparin/Coumadin) Score > or =5: Highest Risk (Intermittent/Pneumatic Compression Device AND Lovenox/Heparin/Coumadin) Review of Systems Allergies: Coded Allergies: No Known Allergies (Unverified , 09/16/22) Scheduled Aspirin (Vazalore), 81 MG PO DAILY24, (Reported) Gabapentin (Gabapentin), 1 CAP PO TID, (Reported) Lisinopril (Lisinopril), 1 TAB PO DAILY, (Reported) Metformin Hcl (Metformin Hcl), 1 TAB PO BID, (Reported) Scheduled PRN Tramadol Hcl (Tramadol Hcl), 1-2 TAB PO Q6H PRN for PAIN Discontinued Medications Tramadol Hcl (Tramadol Hcl), 0.5 TAB PO TID, (Reported) Discontinued Reason: HOLD Objective Vitals and I/O Vital Sign - Last 24 Hours 09/21/22 09/21/22 09/21/22 09/21/22 09:24 12:36 17:29 19:57 Temp 98.6 98.8 98.1 Pulse 61 69 63 Resp 19 18 17 B/P (MAP) 140/80 110/46 (67) 142/73 (96) 128/60 (82) Pulse Ox 96 92 92 O2 Delivery Room Air* Room Air* Room Air* O2 Flow Rate 0 0 0 FiO2 21 21 21 09/21/22 09/22/22 09/22/22 09/22/22 23:45 00:53 03:09 06:47 Temp 98.2 98.9 Pulse 59 95 Resp 17 18 B/P (MAP) 117/50 (72) 122/67 (85) Pulse Ox 92 98 O2 Delivery Room Air* Room Air Room Air Room Air* O2 Flow Rate 0 0.00 0 FiO2 21 21 09/22/22 09/22/22 07:41 08:09 O2 Delivery Room Air Room Air O2 Flow Rate 0.00 0.00 Intake and Output 09/22/22 07:00 Output Total 100 ml Balance -100 ml All Results(Lab/Rad) Laboratory Tests Test 09/20/22 06:28 Bedside Glucose 101 Current Medications Medications (Trade) Dose Ordered Sig/Norris Route PRN Reason Start Time Stop Time Status Last Admin Dose Admin Cefazolin Sodium 2 gm/Sodium Chloride 100 ml @ 100 mls/hr OT ONCE IV 09/20/22 06:00 09/20/22 13:09 DC 09/20/22 08:06 Mupirocin (Bactroban Ointment) 1 gm OT ONCE TP 09/20/22 06:00 09/20/22 13:09 DC 09/20/22 06:38 Cefazolin Sodium (Ancef) 2 gm STK-MED ONCE .ROUTE 09/20/22 05:35 09/20/22 05:35 DC Sodium Chloride 100 ml @ ud STK-MED ONCE IV 09/20/22 05:35 09/20/22 05:36 DC Gabapentin (Neurontin) 300 mg STK-MED ONCE .ROUTE 09/20/22 05:54 09/20/22 05:54 DC Celecoxib (Celebrex) 100 mg STK-MED ONCE .ROUTE 09/20/22 05:54 09/20/22 05:54 DC Tramadol HCl (Ultram) 50 mg STK-MED ONCE .ROUTE 09/20/22 05:54 09/20/22 05:54 DC Acetaminophen 100 ml @ ud STK-MED ONCE IV 09/20/22 05:54 09/20/22 05:54 DC Celecoxib (Celebrex) 400 mg OT ONCE PO 09/20/22 06:00 09/20/22 13:11 DC 09/20/22 06:36 Gabapentin (Neurontin) 600 mg OT ONCE PO 09/20/22 06:00 09/20/22 13:13 DC 09/20/22 06:38 Tramadol HCl (Ultram) 100 mg OT ONCE PO 09/20/22 06:00 09/20/22 13:15 DC 09/20/22 06:37 Acetaminophen (Ofirmev) 500 mg OT ONCE IV 09/20/22 06:00 09/20/22 13:15 DC 09/20/22 06:58 Sodium Chloride (NS 3000ml Irr) 3,000 ml STK-MED ONCE IR 09/20/22 07:12 09/20/22 07:13 DC Sterile Water (Water) 1,000 ml STK-MED ONCE .ROUTE 09/20/22 07:12 09/20/22 07:13 DC Sodium Chloride 250 ml @ ud STK-MED ONCE .ROUTE 09/20/22 07:13 09/20/22 07:14 DC Bupivacaine HCl (Marcaine 0.5%) 1 ml STK-MED ONCE .ROUTE 09/20/22 07:15 09/20/22 07:15 DC Sterile Water (Water) 1,000 ml STK-MED ONCE .ROUTE 09/20/22 07:17 09/20/22 07:17 DC Sterile Water (Water) 1,000 ml STK-MED ONCE .ROUTE 09/20/22 07:19 09/20/22 07:19 DC Ondansetron HCl (Zofran) 4 mg STK-MED ONCE .ROUTE 09/20/22 07:42 09/20/22 07:42 DC Propofol 100 ml @ ud STK-MED ONCE IV 09/20/22 07:42 09/20/22 07:42 DC Gabapentin (Neurontin) 100 mg TID PO 09/20/22 15:00 10/20/22 14:59 09/20/22 15:48 Lisinopril (Zestril) 10 mg DAILY PO 09/21/22 09:00 10/21/22 08:59 Metformin HCl (Glucophage) 500 mg BID PO 09/20/22 21:00 10/20/22 20:59 Tramadol HCl (Ultram) 50 mg Q6H PRN PO PAIN 1 - 3 09/20/22 09:30 10/20/22 09:29 Tramadol HCl (Ultram) 100 mg Q6H PRN PO PAIN 4 - 6 09/20/22 09:30 10/20/22 09:29 Rivaroxaban (Xarelto) 10 mg DAILY PO 09/21/22 09:00 10/21/22 08:59 Docusate Sodium (Colace) 100 mg DAILY PO 09/21/22 09:00 10/21/22 08:59 Throat Lozenges (Cepacol Sore Throat Lozenge) 1 each PRN PRN MM SORE THROAT 09/20/22 09:30 10/20/22 09:29 Cefazolin Sodium/ Dextrose (Ancef 2 Gm/D5W 50ml) 2 gm Q8 IV 09/20/22 14:00 09/21/22 06:01 09/20/22 13:29 Famotidine (Pepcid) 20 mg DAILY PO 09/21/22 09:00 10/21/22 08:59 Acetaminophen (Tylenol) 1,000 mg Q6HR PO 09/20/22 12:00 10/20/22 11:59 09/20/22 12:48 Mupirocin (Bactroban Ointment) 1 gm BID TP 09/20/22 21:00 10/20/22 20:59 Ondansetron HCl (Zofran) 4 mg Q4H PRN IV NAUSEA / VOMITING 09/20/22 09:30 10/20/22 09:29 Ketorolac Tromethamine (Toradol) 15 mg Q6H PRN IV PAIN 7 - 10 09/20/22 09:30 09/25/22 09:29 Course Sepsis Screening Results: Posi: NEGATIVE Sepsis Qualifier/Stage: NO DEFINITE RISK Vitals & review Data Vital Sign - Last 24 Hours 09/20/22 09/20/22 09/20/22 09/20/22 06:00 06:00 07:20 07:25 Temp 97.8 Pulse 64 64 60 Resp 16 16 16 B/P (MAP) 126/67 (86) 154/74 (100) 146/73 (97) Pulse Ox 98 98 100 O2 Delivery Room Air Room Air Nasal Canula Nasal Canula O2 Flow Rate 2.00 2.00 09/20/22 09/20/22 09/20/22 2/27/23 07:30 07:35 10:21 10:21 Temp 97.7 Pulse 58 62 55 Resp 16 16 16 B/P (MAP) 124/76 (92) 132/74 (93) 103/56 (72) Pulse Ox 100 100 99 O2 Delivery Nasal Canula Room Air Nasal Canula O2 Flow Rate 2.00 2.00 09/20/22 09/20/22 09/20/22 09/20/22 10:25 10:30 10:35 10:40 Pulse 56 52 52 49 Resp 16 16 16 16 B/P (MAP) 107/45 (65) 124/56 (78) 112/60 (77) 113/65 (81) Pulse Ox 99 98 98 98 O2 Delivery Nasal Canula Nasal Canula Nasal Canula Nasal Canula 09/20/22 09/20/22 09/20/22 09/20/22 10:45 10:50 10:50 10:58 Temp 97.8 Pulse 50 48 52 Resp 16 16 16 B/P (MAP) 109/64 (79) 112/60 (77) 109/55 (73) Pulse Ox 100 96 93 O2 Delivery Nasal [place]ula Room Air Room Air O2 Flow Rate 0 09/20/22 09/20/22 12:11 16:02 Temp 98.6 98.8 Pulse 56 58 Resp 16 19 B/P (MAP) 125/70 (88) 150/87 (108) Pulse Ox 99 97 O2 Delivery Room Air* Room Air* O2 Flow Rate 0 0 FiO2 21 21 Laboratory Tests Test 09/20/22 06:28 Bedside Glucose 101 Current Medications Medications (Trade) Dose Ordered Sig/Norris PRN Reason Start Time Stop Time Status Last Admin Acetaminophen (Tylenol) 1,000 mg Q6HR 09/20/22 12:00 10/20/22 11:59 09/20/22 12:48 Cefazolin Sodium/ Dextrose (Ancef 2 Gm/D5W 50ml) 2 gm Q8 09/20/22 14:00 09/21/22 06:01 09/20/22 13:29 Docusate Sodium (Colace) 100 mg DAILY 09/21/22 09:00 10/21/22 08:59 Famotidine (Pepcid) 20 mg DAILY 09/21/22 09:00 10/21/22 08:59 Gabapentin (Neurontin) 100 mg TID 09/20/22 15:00 10/20/22 14:59 09/20/22 15:48 Ketorolac Tromethamine (Toradol) 15 mg Q6H PRN PAIN 7 - 10 09/20/22 09:30 09/25/22 09:29 Lisinopril (Zestril) 10 mg DAILY 09/21/22 09:00 10/21/22 08:59 Metformin HCl (Glucophage) 500 mg BID 09/20/22 21:00 10/20/22 20:59 Mupirocin (Bactroban Ointment) 1 gm BID 09/20/22 21:00 10/20/22 20:59 Ondansetron HCl (Zofran) 4 mg Q4H PRN NAUSEA / VOMITING 09/20/22 09:30 10/20/22 09:29 Rivaroxaban (Xarelto) 10 mg DAILY 09/21/22 09:00 10/21/22 08:59 Throat Lozenges (Cepacol Sore Throat Lozenge) 1 each PRN PRN SORE THROAT 09/20/22 09:30 10/20/22 09:29 Tramadol HCl (Ultram) 50 mg Q6H PRN PAIN 1 - 3 09/20/22 09:30 10/20/22 09:29 Tramadol HCl (Ultram) 100 mg Q6H PRN PAIN 4 - 6 09/20/22 09:30 10/20/22 09:29 LEVEL 1 SEPSIS INFECTION CRITE: Recent Invasive Procedure LEVEL 2-SIRS (LIST ALL THAT AP: None/Not assessed Cardiovascular Evidence: Not Assessed or None Hematologic Evidence: None/Not assessed Hepatic Evidence: None/Not assessed Metabolic Evidence: None/Not assessed Neurological Evidence: None/Not assessed Respiratory Evidence: None/Not assessed Renal Evidence: None/Not assessed O2 Sat by Pulse Oximetry: 98 Respiratory End-tidal CO2: 0 Oxygen Flow Rate: 0.00 EVELIA JOHNSONP Sep 22, 2022 09:08
[2022-09-22] MEDS: PEPCID PO SCH (09:23)
[2022-09-22] MEDS: COLACE PO SCH (09:23)
[2022-09-22] MEDS: XARELTO PO SCH (09:24)
[2022-09-22] MEDS: NEURONTIN PO SCH (09:24)
[2022-09-22] MEDS: ZESTRIL PO SCH (09:24)
[2022-09-22] MEDS: BACTROBAN OINTMENT TP SCH (09:24)
[2022-09-22] MEDS: GLUCOPHAGE PO SCH (09:24)
--- NOTE | 2022-09-22 10:00 | NUR ---
DISCHARGE PLANNING CM VISITED WITH PATIENT AND FAMILY REGARDING DISCHARGE PLAN AND NEEDS. PATIENT LIVES AT HOME WITH SISTER, USES A WALKER FOR ADL'S, AND DR MCGOWAN IN [place] FOR PCP. THE PATIENT STATED SHE WANTED AND HER SISTER WANTED TO USE OUTPATIENT PT AT THE [facility] @ [phone], POST D/C. CM NOTIFIED [facility] FOR FOLLOW UP APPT AND WAS TOLD THAT THE PATIENT WOULD HAVE TO PAY OUT OF POCKET D[facility] TO [facility] [facility]. PATIENT NOTIFIED AND DECIDED INSTEAD ON HOME HEALTH FOR PT/OT/EDUCATION. CLINICALS FAXED TO [facility] WITH PATIENT VERBAL PERMISSION. GOAL IS FOR PATIENT TO RETURN TO SISTERS HOME WITH HOME HEALTH PT/OT/EDU TO RETURN TO INDEPENDENT SELF CARE ROUTINE. CM WILL CONTINUE TO FOLLOW FOR D/C PLAN AND NEEDS.
[2022-09-22] MEDS ORDERED: TRAM50TA PO (11:12)
--- NOTE | 2022-09-22 11:18 | PRM.DC ---
KARMA Summary Date of Discharge: Sep 22, 2022 Time of Request to Discharge: 11:12 Final Dx: status post right total knee replacement, osteoarthritis of the right knee Consultations hospitalist Procedures: right total knee replacement Impressions/Complications: none HPI/Course DATE OF ADMISSION: 09/20/22 CHIEF COMPLAINT: right knee pain HISTORY OF PRESENT ILLNESS: Patient has had right knee pain for several years. Her symptoms are gradually getting worse. She takes tramadol and tylenol for the pain. She has pain with household ambulation as well as night pain and limping. She is not able to do her activities of daily living. She states the right knee has given way several times causing her to fall. She's done a home exercise program and tried braces in the past. ALLERGIES: NKDA CURRENT MEDICATIONS: lisinopril, metformin, gabapentin, tramadol, vazalore PAST MEDICAL HISTORY: HTN, DM, dypsnea SOCIAL HISTORY: Lives at home by herself in [place]. She will be staying with her sisters in [place] while recovering from total knee replacement. She reports that she smoked for about a year 50 years ago. Denies alcohol use. Denies illicit drug use. FAMILY HISTORY: Diabetes, cardiac disease REVIEW OF SYSTEMS: right knee pain, all other systems unremarkable VITAL SIGNS: WNL PHYSICAL EXAMINATION: SKIN:WNL EENT:WNL AIRWAY:WNL CHEST AND LUNGS:CTA HEART:RRR ABDOMEN:soft and nontender, bowel sounds active x4 quadrants EXTREMITIES: Obvious varus deformity about the right knee. Right knee has full extension with 120 degrees of flexion. Moderate degree of crepitation with flexion and extension. Good medial lateral stability. LABORATORY DATA: IMAGING: Xrays show the right knee is tricompartmentally [id number] with some medial subluxation of her distal femur on the proximal tibia. SUMMARY: osteoarthritis of the right knee ASSESSMENT/PLAN: right total knee replacement Laboratory Tests Test 09/16/22 14:38 09/16/22 15:30 09/20/22 06:28 Urine Collection Type UNKNOWN Urine Color YELLOW Urine Appearance CLOUDY Urine Bilirubin NEGATIVE (NEGATIVE) Urine Ketones NEGATIVE (NEGATIVE) Urine Specific [place] >=1.030 (1.005-1.030) Urine pH 5.5 (4.5-8.0) Urine Protein NEGATIVE (NEGATIVE) Urine Urobilinogen 0.2 E.U./dL (0.2) Urine Nitrate POSITIVE (NEGATIVE) Urine Leukocyte Esterase NEGATIVE (NEGATIVE) Urine Glucose (Auto)(UA) NEGATIVE (NEGATIVE) Urine Blood NEGATIVE (NEGATIVE) Urine RBC NONE SEEN RBC/HPF (NONE Urine WBC 5-10 WBC/HPF (0-2) Urine Squamous Epithelial Cells MANY (<=FEW) Urine Bacteria MANY (NONE SEEN) White Blood Count 5.0 10^3/uL (4.5-11.0) Red Blood Count 4.50 10^6/uL (4.00-5.20) Hemoglobin 13.0 g/dL (12.0-15.0) Hematocrit 40.5 % (36.0-46.0) Mean Corpuscular Volume 90.0 fL (78-100) Mean Corpuscular Hemoglobin 28.9 pg (26-34) Mean Corpuscular Hemoglobin Concent 32.1 g/dL (33-36.5) Red Cell Distribution Width 13.3 % (11.5-14.5) Platelet Count 229 10^3/uL (150-400) Mean Platelet Volume 10.5 fL (7.8-11.0) Neutrophils (%) (Auto) 68.7 % (41.0-85.0) Lymphocytes (%) (Auto) 21.5 % (24.0-44.0) Monocytes (%) (Auto) 6.2 % (5.0-12.0) Neutrophils # (Auto) 3.4 10^3/uL (1.8-7.7) Lymphocytes # (Auto) 1.07 10^3/uL1 (1.0-4.8) Monocytes # (Auto) 0.3 10^3/uL (0.3-0.8) Absolute Immature Granulocyte (auto 0.01 10^3 u/L (0-2) Absolute Eosinophils (auto) 0.1 10^3/uL (0.0-0.2) Immature Granulocytes % 0.20 % (0.00-0.50) Eosinophils % 2.8 % (0.0-5.0) Basophils % 0.6 % (0.0-0.2) Basophils # 0.0 10^3/uL (0.0-0.1) Sodium Level 142 mmol/L (132-145) Potassium Level 4.3 mmol/L (3.6-5.2) Chloride Level 106.0 mmol/L (96-109) Carbon Dioxide Level 30.6 mmol/L (20.0-32) Anion Gap 9.7 Blood Urea Nitrogen 15 mg/dL (7-18) Creatinine 0.90 mg/dL (0.59-1.40) Estimated GFR () 71.7 (>/=60) Est GFR (CKD-EPI)(Non-Afr [place]) 59.2 (>/=60) BUN/Creatinine Ratio 16.0 Glucose Level 112 mg/dL (70-110) Calcium Level 8.8 mg/dL (8.4-10.5) Total Bilirubin 0.4 mg/dL (0.2-1.0) Aspartate Amino Transf (AST/SGOT) 10 U/L (0-35) Alanine Aminotransferase (ALT/SGPT) 15 U/L (12-78) Alkaline Phosphatase 75 U/L (50-136) Total Protein 6.8 g/dL (6.4-8.2) Albumin 3.5 g/dL (3.4-5.0) Globulin 3.3 Albumin/Globulin Ratio 1.060 Bedside Glucose 101 (70 - 110) Microbiology Date/Time Source Procedure Growth Status 09/16/22 14:38 Nose MRSA Screen - Final Complete 09/16/22 14:38 Urine Unknown Urine Culture - Final Eschericha Coli Complete Lab/Myron/BBK/Rad Laboratory Tests Test 09/20/22 06:28 Bedside Glucose 101 Current Medications Medications (Trade) Dose Ordered Sig/Norris Route PRN Reason Start Time Stop Time Status Last Admin Dose Admin Cefazolin Sodium 2 gm/Sodium Chloride 100 ml @ 100 mls/hr OT ONCE IV 09/20/22 06:00 09/20/22 13:09 DC 09/20/22 08:06 Mupirocin (Bactroban Ointment) 1 gm OT ONCE TP 09/20/22 06:00 09/20/22 13:09 DC 09/20/22 06:38 Cefazolin Sodium (Ancef) 2 gm STK-MED ONCE .ROUTE 09/20/22 05:35 09/20/22 05:35 DC Sodium Chloride 100 ml @ ud STK-MED ONCE IV 09/20/22 05:35 09/20/22 05:36 DC Gabapentin (Neurontin) 300 mg STK-MED ONCE .ROUTE 09/20/22 05:54 09/20/22 05:54 DC Celecoxib (Celebrex) 100 mg STK-MED ONCE .ROUTE 09/20/22 05:54 09/20/22 05:54 DC Tramadol HCl (Ultram) 50 mg STK-MED ONCE .ROUTE 09/20/22 05:54 09/20/22 05:54 DC Acetaminophen 100 ml @ ud STK-MED ONCE IV 09/20/22 05:54 09/20/22 05:54 DC Celecoxib (Celebrex) 400 mg OT ONCE PO 09/20/22 06:00 09/20/22 13:11 DC 09/20/22 06:36 Gabapentin (Neurontin) 600 mg OT ONCE PO 09/20/22 06:00 09/20/22 13:13 DC 09/20/22 06:38 Tramadol HCl (Ultram) 100 mg OT ONCE PO 09/20/22 06:00 09/20/22 13:15 DC 09/20/22 06:37 Acetaminophen (Ofirmev) 500 mg OT ONCE IV 09/20/22 06:00 09/20/22 13:15 DC 09/20/22 06:58 Sodium Chloride (NS 3000ml Irr) 3,000 ml STK-MED ONCE IR 09/20/22 07:12 09/20/22 07:13 DC Sterile Water (Water) 1,000 ml STK-MED ONCE .ROUTE 09/20/22 07:12 09/20/22 07:13 DC Sodium Chloride 250 ml @ ud STK-MED ONCE .ROUTE 09/20/22 07:13 09/20/22 07:14 DC Bupivacaine HCl (Marcaine 0.5%) 1 ml STK-MED ONCE .ROUTE 09/20/22 07:15 09/20/22 07:15 DC Sterile Water (Water) 1,000 ml STK-MED ONCE .ROUTE 09/20/22 07:17 09/20/22 07:17 DC Sterile Water (Water) 1,000 ml STK-MED ONCE .ROUTE 09/20/22 07:19 09/20/22 07:19 DC Ondansetron HCl (Zofran) 4 mg STK-MED ONCE .ROUTE 09/20/22 07:42 09/20/22 07:42 DC Propofol 100 ml @ ud STK-MED ONCE IV 09/20/22 07:42 09/20/22 07:42 DC Gabapentin (Neurontin) 100 mg TID PO 09/20/22 15:00 10/20/22 14:59 09/20/22 15:48 Lisinopril (Zestril) 10 mg DAILY PO 09/21/22 09:00 10/21/22 08:59 Metformin HCl (Glucophage) 500 mg BID PO 09/20/22 21:00 10/20/22 20:59 Tramadol HCl (Ultram) 50 mg Q6H PRN PO PAIN 1 - 3 09/20/22 09:30 10/20/22 09:29 Tramadol HCl (Ultram) 100 mg Q6H PRN PO PAIN 4 - 6 09/20/22 09:30 10/20/22 09:29 Rivaroxaban (Xarelto) 10 mg DAILY PO 09/21/22 09:00 10/21/22 08:59 Docusate Sodium (Colace) 100 mg DAILY PO 09/21/22 09:00 10/21/22 08:59 Throat Lozenges (Cepacol Sore Throat Lozenge) 1 each PRN PRN MM SORE THROAT 09/20/22 09:30 10/20/22 09:29 Cefazolin Sodium/ Dextrose (Ancef 2 Gm/D5W 50ml) 2 gm Q8 IV 09/20/22 14:00 09/21/22 06:01 09/20/22 13:29 Famotidine (Pepcid) 20 mg DAILY PO 09/21/22 09:00 10/21/22 08:59 Acetaminophen (Tylenol) 1,000 mg Q6HR PO 09/20/22 12:00 10/20/22 11:59 09/20/22 12:48 Mupirocin (Bactroban Ointment) 1 gm BID TP 09/20/22 21:00 10/20/22 20:59 Ondansetron HCl (Zofran) 4 mg Q4H PRN IV NAUSEA / VOMITING 09/20/22 09:30 10/20/22 09:29 Ketorolac Tromethamine (Toradol) 15 mg Q6H PRN IV PAIN 7 - 10 09/20/22 09:30 09/25/22 09:29 Vitals/I&O VS - Last 72 Hours, by Label Date Time Temp Pulse Resp B/P (MAP) Pulse Ox O2 Delivery O2 Flow Rate FiO2 09/22/22 09:24 122/67 09/22/22 08:09 Room Air 0.00 09/22/22 07:41 Room Air 0.00 09/22/22 06:47 98.9 95 18 122/67 (85) 98 Room Air* 0 21 09/22/22 03:09 Room Air 09/22/22 00:53 Room Air 0.00 09/21/22 23:45 98.2 59 17 117/50 (72) 92 Room Air* 0 09/21/22 19:57 98.1 63 17 128/60 (82) 92 Room Air* 0 09/21/22 17:29 98.8 69 18 142/73 (96) 92 Room Air* 0 09/21/22 12:36 98.6 61 19 110/46 (67) 96 Room Air* 0 09/21/22 09:24 140/80 09/21/22 08:13 Room Air 0.00 09/21/22 08:08 98.0 54 18 140/80 (100) 97 Room Air* 0 09/21/22 07:58 Room Air 0.00 09/21/22 03:49 96.5 61 18 104/52 (69) 93 Room Air* 0 09/20/22 23:35 97.2 66 18 100/57 (71) 92 Room Air* 0 09/20/22 19:45 97.3 60 17 141/77 (98) 97 Room Air* 0 09/20/22 19:44 Room Air 0.00 09/20/22 19:43 Room Air 0.00 09/20/22 16:02 98.8 58 19 150/87 (108) 97 Room Air* 0 09/20/22 12:11 98.6 56 16 125/70 (88) 99 Room Air* 0 09/20/22 11:00 Room Air 0.00 09/20/22 11:00 Room Air 0.00 09/20/22 10:58 97.8 52 16 109/55 (73) 93 Room Air 09/20/22 10:50 0 09/20/22 10:50 48 16 112/60 (77) 96 Room Air 09/20/22 10:45 50 16 109/64 (79) 100 Nasal [place] 09/20/22 10:40 49 16 113/65 (81) 98 Nasal [place] 09/20/22 10:35 52 16 112/60 (77) 98 Nasal [place] 09/20/22 10:30 52 16 124/56 (78) 98 Nasal [place] 09/20/22 10:25 56 16 107/45 (65) 99 Nasal [place] 09/20/22 10:21 2.00 09/20/22 10:21 97.7 55 16 103/56 (72) 99 Nasal [place] 09/20/22 07:35 62 16 132/74 (93) 100 Room Air 09/20/22 07:30 58 16 124/76 (92) 100 Nasal [place] 2.00 09/20/22 07:25 60 16 146/73 (97) 100 Nasal [place] 2.00 09/20/22 07:20 64 16 154/74 (100) 98 Nasal [place] 2.00 09/20/22 06:00 97.8 64 16 126/67 (86) 98 Room Air 09/20/22 06:00 Room Air 09/16/22 14:38 98.0 63 18 126/62 (83) 98 Room Air Scheduled Aspirin (Vazalore), 81 MG PO DAILY24, (Reported) Gabapentin (Gabapentin), 1 CAP PO TID, (Reported) Lisinopril (Lisinopril), 1 TAB PO DAILY, (Reported) Metformin Hcl (Metformin Hcl), 1 TAB PO BID, (Reported) Tramadol Hcl (Tramadol Hcl), 0.5 TAB PO TID, (Reported) Scheduled PRN Tramadol Hcl (Tramadol Hcl), 1-2 TAB PO Q6H PRN for PAIN Sepsis Reassessment @ DC Vital Sign - Last 24 Hours 09/20/22 09/20/22 09/20/22 09/20/22 06:00 06:00 07:20 07:25 Temp 97.8 Pulse 64 64 60 Resp 16 16 16 B/P (MAP) 126/67 (86) 154/74 (100) 146/73 (97) Pulse Ox 98 98 100 O2 Delivery Room Air Room Air Nasal [place] Nasal Canula O2 Flow Rate 2.00 2.00 09/20/22 09/20/22 09/20/22 09/20/22 07:30 07:35 10:21 10:21 Temp 97.7 Pulse 58 62 55 Resp 16 16 16 B/P (MAP) 124/76 (92) 132/74 (93) 103/56 (72) Pulse Ox 100 100 99 O2 Delivery Nasal [place] Room Air Nasal [place] O2 Flow Rate 2.00 2.00 09/20/22 09/20/22 09/20/22 09/20/22 10:25 10:30 10:35 10:40 Pulse 56 52 52 49 Resp 16 16 16 16 B/P (MAP) 107/45 (65) 124/56 (78) 112/60 (77) 113/65 (81) Pulse Ox 99 98 98 98 O2 Delivery Nasal [place] Nasal Canula Nasal Canula Nasal Canula 09/20/22 09/20/22 09/20/22 09/20/22 10:45 10:50 10:50 10:58 Temp 97.8 Pulse 50 48 52 Resp 16 16 16 B/P (MAP) 109/64 (79) 112/60 (77) 109/55 (73) Pulse Ox 100 96 93 O2 Delivery Nasal [place] Room Air Room Air O2 Flow Rate 0 09/20/22 09/20/22 12:11 16:02 Temp 98.6 98.8 Pulse 56 58 Resp 16 19 B/P (MAP) 125/70 (88) 150/87 (108) Pulse Ox 99 97 O2 Delivery Room Air* Room Air* O2 Flow Rate 0 0 FiO2 21 21 Laboratory Tests Test 09/20/22 06:28 Bedside Glucose 101 Current Medications Medications (Trade) Dose Ordered Sig/Norris PRN Reason Start Time Stop Time Status Last Admin Acetaminophen (Tylenol) 1,000 mg Q6HR 09/20/22 12:00 10/20/22 11:59 09/20/22 12:48 Cefazolin Sodium/ Dextrose (Ancef 2 Gm/D5W 50ml) 2 gm Q8 09/20/22 14:00 09/21/22 06:01 09/20/22 13:29 Docusate Sodium (Colace) 100 mg DAILY 09/21/22 09:00 10/21/22 08:59 Famotidine (Pepcid) 20 mg DAILY 09/21/22 09:00 10/21/22 08:59 Gabapentin (Neurontin) 100 mg TID 09/20/22 15:00 10/20/22 14:59 09/20/22 15:48 Ketorolac Tromethamine (Toradol) 15 mg Q6H PRN PAIN 7 - 10 09/20/22 09:30 09/25/22 09:29 Lisinopril (Zestril) 10 mg DAILY 09/21/22 09:00 10/21/22 08:59 Metformin HCl (Glucophage) 500 mg BID 09/20/22 21:00 10/20/22 20:59 Mupirocin (Bactroban Ointment) 1 gm BID 09/20/22 21:00 10/20/22 20:59 Ondansetron HCl (Zofran) 4 mg Q4H PRN NAUSEA / VOMITING 09/20/22 09:30 10/20/22 09:29 Rivaroxaban (Xarelto) 10 mg DAILY 09/21/22 09:00 10/21/22 08:59 Throat Lozenges (Cepacol Sore Throat Lozenge) 1 each PRN PRN SORE THROAT 09/20/22 09:30 10/20/22 09:29 Tramadol HCl (Ultram) 50 mg Q6H PRN PAIN 1 - 3 09/20/22 09:30 10/20/22 09:29 Tramadol HCl (Ultram) 100 mg Q6H PRN PAIN 4 - 6 09/20/22 09:30 10/20/22 09:29 Condition/Impression Patient has history of osteoarthritis of the right knee. She underwent right total knee replacement on 09/20/22. Pain okay. VSS. NVM+. Hgb 9.9. She has had satisfactory inpatient stay and states that she is ready for discharge. She reports she will be staying with her sisters in while she recovers. Activity as tolerated Diet as tolerated Discharge Plan Patient to be discharged home with family Continue with PT Continue with walker Tylenol 1000mg every 6 hours Tramadol 50mg: take 1-2 tablets by mouth every 6 hours as needed for pain Aspirin 81mg: take 1 tablet by mouth twice daily Leave dressing in place until follow up, keep clean and dry. Follow up on 09/27/22 Referral/Follow-up Follow up on 09/27/22 Prescription/RX: Active Scripts Active Reported Vaz[place] (Aspirin) 81 Mg Capsule 81 Mg PO DAILY24 Tramadol Hcl 50 Mg Tablet 0.5 Tab PO TID Gabapentin 100 Mg Capsule 1 Cap PO TID Metformin Hcl 500 Mg Tablet 1 Tab PO BID Lisinopril 10 Mg Tablet 1 Tab PO DAILY EVELIA JOHNSON Sep 22, 2022 11:18
[2022-09-22 11:59] VITALS: BP 124/67
[2022-09-22 12:40] VITALS: BP 124/67
--- NOTE | 2022-09-22 12:43 | NUR ---
DISCHARGE DISCHARGE INSTRUCTIONS GIVEN. PT VERBALIZED UNDERSTANDING OF FOLLOW-UP APPOINTMENT, MEDICATIONS, DIET, AND ACTIVITY. PT LEFT VIA WHEELCHAIR ACCOMPANIED BY X 1 NURSING STAFF VIA WHEELCHAIR TO PERSONAL VEHICLE.
== END 2022-09-22 12:43 | disposition home health service (06) | DRG 470 ==
LOC: UNDOADMOB 11:15 → OBSVTOIN 11:15 → MS 11:15 → INTOOBSV 11:15
PROVIDERS: ADMIT Orthopaedic Surgery; ATTEND Orthopaedic Surgery
PROC: 0SRC0J9 Replacement of Right Knee Joint with Synthetic Substitute, Cemented, Open Approach (ICD-10-PCS; principal; 2022-09-20 08:00)
DX: M17.11 Unilateral primary osteoarthritis, right knee (principal); D62 Acute posthemorrhagic anemia; I10 Essential (primary) hypertension; M81.0 Age-related osteoporosis without current pathological fracture; E11.9 Type 2 diabetes mellitus without complications; Z83.3 Family history of diabetes mellitus; Z87.891 Personal history of nicotine dependence; Z90.710 Acquired absence of both cervix and uterus
CPT/HCPCS: 36415; 73560; 80053; 81001; 82948; 85025; 85027; 87070; 87077; 87086; 87186; 93005; 97162; 97166; A4217; C1713; C1776; G0378; J0131; J0690; J1100; J1885; J2250; J2405; J3490; J7050; J7120; 97116-GP; 97535-GO; 97760-GP; C9290; J8499

== ENCOUNTER → 2023-02-01 | Outpatient (CLI) | payer MEDICARE ==
[~2023-02-01] MED LIST changes: -ANCEF 2 GM in NS 100ML 100 ML IV ONE; -ANCEF ONE; -BACTROBAN OINTMENT TP ONE; -CELEBREX ONE; -CELEBREX PO ONE; -DECADRON IV ONE; -DECADRON ONE; -DIPRIVAN 100 ML IV ONE; -EXPAREL 266 MG/20 ML VIAL IJ ONE; -MARCAINE 0.5% ONE; -NEURONTIN ONE; -NEURONTIN PO ONE; -NS 100ML 100 ML IV ONE; -NS 250ML 250 ML ONE; -NS 3000ML IRR IR ONE; -OFIRMEV 100 ML IV ONE; -OFIRMEV IV ONE; -TRANEXAMIC 1,000 MG/100ML-NACL 200 ML IV ONE; -ULTRAM ONE; -ULTRAM PO ONE; -VERSED ONE; -WATER ONE; -ZOFRAN ONE
== END | disposition home or self-care (01) ==
LOC: RAD 14:11
PROVIDERS: ATTEND Orthopaedic Surgery
DX: M17.12 Unilateral primary osteoarthritis, left knee (principal)
CPT/HCPCS: 73700